=== PATIENT | female | born 1970 ===

== ENCOUNTER 2017-11-15 11:15 | Observation (INO) | payer BC ==
--- NOTE | 2017-11-14 14:16 | Pre-Procedure Note/Attestation ---
Pre-Procedure Note/Attestation Complete Prior to Procedure Planned Procedure: right Procedure Narrative: Rt ankle ORIF Indications for Procedure Pre-Operative Diagnosis: Rt ankle fracture Attestation I attest that I discussed the nature of the procedure; its benefits; risks and complications; and alternatives (and the risks and benefits of such alternatives ), prior to the procedure, with the patient (or the patient's legal hospital sales representative). I attest that, if there was a reasonable possibility of needing a blood transfusion, the patient (or the patient's legal hospital sales representative) was given the [facility] standardized written summary, pursuant to the Boni Rayo Blood Safety Act ([place] Health and Safety Code # 1645, as amended). I attest that I re-evaluated the patient just prior to the surgery and that there has been no change in the patient's H&P, except as documented below: NONE Victoriano Metz MD Nov 14, 2017 14:16
[2017-11-15] VITALS (15 sets, daily range): BP systolic 99–121; BP diastolic 48–73
[~2017-11-15] VITALS: Ht 167.6 cm; Wt 62.6 kg
[~2017-11-15 11:15] MED LIST: ceFAZolin 1gm in D5W 55ml IVPB ONE; celeBREX 200mg Cap **SURGERY PATIENTS ONLY ORAL ONE; oxyCONTIN 20mg tab ORAL ONE
[2017-11-15] MEDS ORDERED: MAXALT10 MG PO (12:30)
[2017-11-15] MEDS ORDERED: NORCO 10-325 T1 EACH ORAL (12:30)
[2017-11-15] MEDS ORDERED: ADDERALL XR 3030 MG ORAL (12:30)
[2017-11-15] MEDS ORDERED: LR 1000ml 1,000 ML IVLG SCH (12:38)
--- NOTE | 2017-11-15 12:38 | Anethesia Preoperative Eval ---
Anesthesia Pre-op PMH/ROS General Date of Evaluation: Nov 15, 2017 Time of Evaluation: 14:36 Anesthesiologist: Norman ASA Score: ASA 2 Mallampati Score Class I : Soft palate, uvula, fauces, pillars visible Class II: Soft palate, uvula, fauces visible Class III: Soft palate, base of uvula visible Class IV: Only hard plate visible Mallampati Classification: Class I Surgeon: Lashay Diagnosis: R Ankle Pain Surgical Procedure: R Ankle Fusion Anesthesia History: none Family History: no anesthesia problems Allergies: Coded Allergies: LATEX (Verified Allergy, Mild, 11/15/17) SKIN RASH SULFA (SULFONAMIDE ANTIBIOTICS) (Verified Allergy, Unknown, 11/15/17) CANNOT REMEMBER REACTION Medications: see eMAR Past Medical History Neurologic/Psychiatric: Reports: other - Migranes PSxH Narrative: Appendectomy, Ectopic , Breast augs Anesthesia Pre-op Phys. Exam Physician Exam Last Vital Signs Date Time Temp Pulse Resp B/P (MAP) Pulse Ox O2 Delivery O2 Flow Rate FiO2 11/15/17 12:35 98.6 51 20 118/52 (74) 100 98.6 11/15/17 12:31 Room Air Constitutional: NAD Neurologic: CN 2-12 intact Cardiovascular: RRR Respiratory: CTA Gastrointestinal: S/NT/ND Airway Exam Mallampati Score: Class I MO: full ROM: full Teeth: intact Anesthesia Pre-op A/P Labs Urine Test Test 11/15/17 11:25 Urine HCG, Qualitative Negative (NEGATIVE) Risk Assessment & Plan Assessment: ASA 2 Plan: GA, Sciatic Block, BIS Status Change Before Surgery: No Pre-Antibiotics Dru Gram Ancef IV Given Within 1 Hr of Incision: Yes Time Given: 14:48 Js Austin MD Nov 15, 2017 12:38
[2017-11-15] MEDS ORDERED: Dexamethasone 4mg/ml vial ONE ×2 (12:40→16:29)
[2017-11-15] MEDS ORDERED: Propofol 200mg/20ml IV ONE (12:40)
[2017-11-15] MEDS ORDERED: Lidocaine 1% MPF 10mg/ml 5ml ONE ×2 (12:40→16:36)
[2017-11-15] MEDS ORDERED: Sodium Chloride 10ml vial INJ ONE (12:40)
[2017-11-15] MEDS ORDERED: Alfentanil 2ml Inj ONE (12:41)
[2017-11-15] MEDS ORDERED: Ropivacaine 5mg/ml Vial 30ml INJ ONE ×3 (12:42→17:26)
[2017-11-15] MEDS ORDERED: LORazepam Inj 2mg/ml 1ml IV PRN (12:45)
[2017-11-15] MEDS ORDERED: Midazolam 2mg/2ml Inj IVP PRN (12:45)
[2017-11-15] MEDS ORDERED: Ketorolac 30mg Inj IV PRN ×2 (12:45)
[2017-11-15] MEDS ORDERED: Atropine Inj 1mg/10ml Syr IV PRN (12:45)
[2017-11-15] MEDS ORDERED: DiphenhydrAMINE 50mg/ml Inj IVP PRN (12:45)
[2017-11-15] MEDS ORDERED: Hydromorphone 0.5mg/0.5ml inj IVP PRN (12:45)
[2017-11-15] MEDS ORDERED: oxyCODONE HCL/Acetaminophen 5/325mg ORAL PRN ×2 (12:45→20:15)
[2017-11-15] MEDS ORDERED: Metoclopramide 10mg/2ml Inj IVP PRN (12:45)
[2017-11-15] MEDS ORDERED: Labetalol 5mg/ml 20ml vial IV PRN (12:45)
[2017-11-15] MEDS ORDERED: Norco 5mg/325mg tab ORAL PRN ×2 (12:45→21:01)
[2017-11-15] MEDS ORDERED: HYDROcodone/Acetamin 7.5/325 tab ORAL PRN (12:45)
[2017-11-15] MEDS ORDERED: oxyCONTIN 20mg tab ORAL ONE (13:05)
[2017-11-15] MEDS ORDERED: LR 1000ml ONE (14:30)
[2017-11-15] MEDS ORDERED: Sterile Water Irrig 1000ml IRRIG ONE (14:30)
[2017-11-15] MEDS ORDERED: NS Irrig 1000ml ONE (14:30)
[2017-11-15] MEDS ORDERED: Bacitracin 50000 Units Vial ONE (14:37)
[2017-11-15] MEDS ORDERED: Bupivacaine 0.5% Inj 30 ml vial INJ ONE (14:37)
[2017-11-15] MEDS ORDERED: NeoSporin Gu Irrig 1ml Amp IRRIG ONE (14:37)
--- NOTE | 2017-11-15 15:25 | Immediate Post-Op Evaluation ---
Immediate Post-Op Evalulation Immediate Post-Op Evalulation Procedure: ORIF R Ankle Date of Evaluation: Nov 15, 2017 Time of Evaluation: 14:59 IV Fluids: 1000 LR Blood Products: 0 Estimated Blood Loss: 10 Urinary Output: 0 Blood Pressure Systolic: 116 Blood Pressure Diastolic: 73 Pulse Rate: 62 Respiratory Rate: 16 O2 Sat by Pulse Oximetry: 100 Temperature (Fahrenheit): 98.2 Pain Score (1-10): 2 Nausea: No Vomiting: No Complications 0 Patient Status: awake, reacts, patent, extubated, none Hydration Status: adequate Dru Gram Ancef IV Given Within 1 Hr of Incision: Yes Time Given: 14:58 Js Austin MD Nov 15, 2017 15:25
--- NOTE | 2017-11-15 15:27 | 48 Hour Post Anesthesia Eval ---
Post Anesthesia Evaluation Procedure: ORIF R Ankle Date of Evaluation: Nov 15, 2017 Time of Evaluation: 16:58 Blood Pressure Systolic: 111 0: 73 Pulse Rate: 69 Respiratory Rate: 16 Temperature (Fahrenheit): 98.4 O2 Sat by Pulse Oximetry: 100 Airway: patent Nausea: No Vomiting: No Pain Intensity: 1 Hydration Status: adequate Cardiopulmonary Status: Stable Mental Status/LOC: patient returned to baseline Follow-up Care/Observations: 0 Post-Anesthesia Complications: 0 Follow-up care needed: ready to discharge Js Austin MD Nov 15, 2017 15:27
[2017-11-15] MEDS ORDERED: ePHEDrine 50mg/ml Inj ONE (15:29)
--- NOTE | 2017-11-15 16:23 | Brief Operative Note ---
Immediate Post Operative Note Operative Note Chief Complaint: rt ankle injury Pre-op Diagnosis: rt ankle fracture Procedure: rt ankle ORIF Post-op Diagnosis: same as pre-op Findings: consistent w/pre-op dx studies Surgeon: md marvin Seam Stayer: burke starr Anesthesiologist: md ame Anesthesia: general Specimen: none Complications: none Condition: stable Fluids: ns Estimated Blood Loss: minimal Drains: none Implant(s) used?: Yes - Maggie Kaiser Nov 15, 2017 16:23
[2017-11-15] MEDS ORDERED: Atropine Inj 1mg/10ml Syr ONE (16:28)
[2017-11-15] MEDS ORDERED: fentaNYL 100 mcg/2 mL IV ONE (16:33)
[2017-11-15] MEDS ORDERED: Ketorolac 30mg Inj ONE (16:38)
[2017-11-15] MEDS ORDERED: Midazolam 2mg/2ml Inj ONE ×2 (16:39→17:21)
[2017-11-15] MEDS ORDERED: Acetaminophen (Non formulary) 100 ML IV ONE (17:00)
[2017-11-15] MEDS: fentaNYL 100 mcg/2 mL IV PRN ×3 (17:00→17:34)
[2017-11-15] MEDS ORDERED: Meperidine 50mg/ml Inj(FOR RIGORS ONLY) ONE (18:21)
[2017-11-15] MEDS ORDERED: Meperidine 50mg/ml Inj(FOR RIGORS ONLY) IVP PRN ×2 (18:45→19:30)
[2017-11-15] MEDS ORDERED: Morphine Sulfate 2mg/ml Inj(IV/IM USE ONLY) IM PRN (20:15)
[2017-11-15] MEDS ORDERED: Morphine Sulfate 4mg/ml Inj (IV USE ONLY) IVP SCH (20:15)
[2017-11-15] MEDS ORDERED: oxyCONTIN 20mg tab ORAL SCH (21:00)
[2017-11-15] MEDS ORDERED: HYDROmorphone 1mg/ml Carpuject SUBQ PRN ×2 (21:01→21:45)
[2017-11-15] MEDS ORDERED: Tylenol #3 tab (300mg/30mg) ORAL PRN (21:01)
[2017-11-15] MEDS ORDERED: D5 1/2NS 1,000 ML IV SCH (21:01)
[2017-11-15] MEDS ORDERED: TransDerm Scop 1mg/72HR Patch TDERMAL SCH (21:45)
[2017-11-15] MEDS ORDERED: oxyCODONE 15mg IR tab ORAL PRN (21:45)
[2017-11-15] MEDS: Dronabinol 2.5mg Cap ORAL SCH (22:06)
[2017-11-15] MEDS: LORazepam 1mg tab ORAL SCH (23:47)
[2017-11-16] VITALS: BP 114/60
--- NOTE | 2017-11-16 00:47 | Operative Note - Dictated ---
DATE OF OPERATION: 11/15/2017 POSTOPERATIVE DIAGNOSIS: Right ankle bimalleolar fracture with displacement. POSTOPERATIVE DIAGNOSIS: Right ankle bimalleolar fracture with displacement. PROCEDURE: Right ankle open reduction and internal fixation of bimalleolar fracture with an 8-hole 1/3 tubular plate on the lateral side and two 40 mm partially threaded cancellous screws on the medial side. SURGEON: Victoriano Metz M.D. NURSE RESEARCHER: Maggie Reynolds PA-C. ANESTHESIOLOGIST: Humberto Sarkar M.D. ANESTHESIA: General LMA anesthesia. ESTIMATED BLOOD LOSS: Less than 20 mL. COMPLICATIONS: None. BRIEF HISTORY: The patient is a pleasant 46-year-old female who sustained a right ankle fracture. The fracture was displaced. After full discussion of the risks and benefits of the surgery and complications including infection, bleeding, neurovascular complication, possible malunion, possible nonunion, possibility of hardware failure, possible need for further surgery, possible posttraumatic arthritis, and other complication that may arise, she opted for surgical treatment as described above. OPERATIVE PROCEDURE: The patient was brought to the operative room table, was placed supine, and all pressure points were well padded. General LMA anesthesia was induced. Right ankle was prepped and draped in the usual sterile fashion. The right ankle was exsanguinated and tourniquet was inflated to 275 mmHg. Standard lateral approach to the ankle was undertaken. The incision was taken through the subcutaneous tissue. The fracture was identified. The fracture was reduced anatomically using reduction clamps. A lag screw was placed in from anterior to posterior. This held the fracture reduced anatomically. Subsequently, an 8-hole 1/3 tubular plate was placed and three fully threaded cancellous screws were placed distally and three bicortical screws were placed proximally. This buttressed the fracture well and fracture was reduced anatomically on the lateral side. At this point, care was given to the medial side. A medial incision was made. The fracture was identified. The fracture was reduced anatomically and two partially threaded 40 mm cancellous screws were placed in the medial malleolus holding the fracture anatomically reduced. This compressed the fracture anatomically. The wounds were thoroughly irrigated using copious amount of fluid. Final x-rays were obtained on AP, lateral, and mortise views showed anatomical reduction of the fracture, excellent placement of hardware, and intact mortise. There was no syndesmotic injury that could be appreciated. The ankle was stressed and again syndesmotic injury was not noted. Wounds were thoroughly irrigated using copious amount of fluid. Subcutaneous tissue was closed using 2-0 Vicryl suture and the skin was closed using 3-0 Monocryl suture. The posterior splint and sugar-tong splint was applied. The patient was taken to the recovery room in stable condition. All lap counts and instrument counts were correct. Victoriano Metz M.D. DR: GENEVA JOB#: [id number] CC:
--- NOTE | 2017-11-16 01:47 | Consultation ---
DATE OF CONSULTATION: 11/15/2017 CONSULTING PHYSICIAN: Guanakito Francis M.D. SURGEON: Victoriano Metz M.D. REASON FOR CONSULTATION: Acute pain consult. HISTORY OF PRESENT ILLNESS: Dear Dr. Victoriano Metz, Thank you kindly for consulting me to evaluate and render an opinion as to how to proceed in the management of the patient's acute postoperative right lower leg pain, status post lower leg open reduction and internal fixation surgery after a fracture. The patient is a 46-year-old woman with a lengthy history of chronic pain syndrome and left lower extremity RSD seven or eight years ago followed by outpatient pain management doctor and underwent multiple sympathetic nerve block injections. Today, the patient underwent right ankle open reduction and internal fixation for planned outpatient surgery. After the procedure despite intraoperative nerve block by the anesthesiologist, the patient still states that her pain was unrelenting and intractable. Dr. Metz, you admitted the patient for uncontrolled pain, consulted me for EMERGENT hospital pain, inpatient pain consultation. I saw the patient at the bedside after discussion with the recovery room nurse as well as with the floor nurse. I reviewed the medical record in detail. I performed detailed bedside history and physical examination to devise the following analgesic plan. PAST MEDICAL HISTORY: 1. Acute postoperative right lower leg pain, status post right lower leg ORIF by Dr. Victoriano Metz in 10/2017. 2. Attention deficit hyperactivity disorder. 3. Migraine headaches. 4. History of RSD of the left lower extremity seven or eight years ago followed with extensive workup and treatment by outpatient pain management physicians. 5. Frequent alcohol usage. PAST SURGICAL HISTORY: Breast augmentation surgery and appendectomy. MEDICATIONS: At home, Adderall 30 mg daily, [place] 10/325 mg, and Maxalt. ALLERGIES: Latex causes itching and sulfa as a child. SOCIAL HISTORY: The patient currently lives with her at home, although they have been having marital difficulties, per the patient. The patient admits to using cannabinoids, sublingual medications for the past couple weeks. The patient admits to drinking a few glasses of wine at least every other night with larger quantities on the weekends. The patient admits to active tobacco usage at least half pack daily. The patient denies crystal methamphetamine usage. The patient denies OxyContin usage. REVIEW OF SYSTEMS: Per attending physician. FAMILY HISTORY: Hypertension, lung cancer, prostate cancer, and hyperlipidemia. PHYSICAL EXAMINATION: VITAL SIGNS: Age 46. Height 5 feet 6 inches. Weight 137 pounds. Body mass index 22. HEENT: Normocephalic and atraumatic. CHEST: Clear to auscultation. BREASTS: Deferred. ABDOMEN: Soft. EXTREMITIES: Left leg shows multiple bruises, where the patient states that she injured this falling from her crutches over the past week. The right lower leg is elevated on pillow covering ice packs. The patient is moving her toes and has significant pain with any movement. NEUROLOGIC: Detailed neurologic exam per Dr. Metz. LABORATORY AND DIAGNOSTIC DATA: Diagnostic testing shows laboratory studies from 11/10/2017 with INR 1.0 and PTT 27. Urinalysis negative. White count 8, hematocrit 39, and platelets 258,000. Sodium 138, potassium 4.7, chloride 99, bicarbonate 24, glucose 90, creatinine 0.8, BUN 10, and calcium 9.1. A 12-lead EKG shows normal sinus rhythm, ventricular rate 67, and no evidence for acute cardiac ischemia. IMPRESSION: 1. Acute postoperative right lower leg pain, status post right lower leg ORIF by Dr. Victoriano Metz in 10/2017. 2. Attention deficit hyperactivity disorder. 3. Migraine headaches. 4. History of RSD of the left lower extremity seven or eight years ago followed with extensive workup and treatment by outpatient pain management physicians. 5. Frequent alcohol usage. TREATMENT AND RECOMMENDATIONS: This patient has a complex history with her left lower extremity RSD and significant pain management workup with injection treatments and use of [place] in the past. The patient does admit to active tobacco usage. She also admits to considerable wine usages along with a recent cannabinoid, self-treatment. I spoke with the hospital pharmacist, Linda along with the floor nurse, Manuel to institute the following analgesic plan. I will dose the patient with Marinol 2.5 mg immediately and follows every eight hours, this should help with her attention deficit hyperactivity disorder along with complaints of postoperative nausea, hopefully help reduce her opioid requirements. She received multiple bolus doses of Demerol and fentanyl in the recovery room without adequate pain control. She has tolerated Percocet in the past. I have ordered a dose of oxycodone 15 mg q.3 hours p.r.n. for moderate breakthrough pain. The patient states that she has been rather immune to [place], which she took considerably up to eight pills a day during her RSD flares, which still recurrent from [id number] to her left lower extremity. I have added a breakthrough dose of Dilaudid 1 mg subcutaneously every three hours p.r.n. for severe breakthrough pain. With considerable alcohol usage and attention deficit hyperactivity disorder, I have added an anxiolytic, Ativan 1 mg q.12 hours to help moderate her anxiety and pain control. I will also add a nicotine patch 21 mg starting tonight to help with nicotine withdrawal agitation, which may exacerbate her pain complaints. The patient is concerned with nausea symptoms, I have added a dose of 1 mg scopolamine patch. As the patient denies any glaucoma symptoms, which would prohibit the usage of scopolamine. I also added dose of Phenergan intramuscularly 12.5 mg q.8 hours along with Zofran 4 mg intravenously q.4 hours for as needed parental antiemetic agents. I will empirically place the patient on Protonix 40 mg nightly for GI ulcer prophylaxis. I have ordered a p.r.n. dose of Mylanta 30 mL q.6 hours in case of any GERD symptom exacerbation. I have ordered Benadryl 25 mg orally every six hours in case of any itching complaints. The patient does have a history of headaches, I have ordered Fioricet one tablet orally every eight hours p.r.n. for any headache symptoms. Hopefully, the patient will not need to use her on Maxalt in case of migraine flare. I did instruct the nurseManuel to wait at least 60 minutes between doses of any sedating medications to avoid any oversedation with polypharmacy. I have ordered incentive spirometer to encourage good pulmonary toilet. With her active tobacco usage, I did newspaper delivery counselor the patient to stop smoking. The patient does admit that with her marital difficulties, she restarted smoking six months ago and seems to be under too much anxiety and stress to stop smoking at this time. I will defer DVT prophylaxis to the surgeon, Dr. Victoriano Metz. Guanakito Francis M.D. DR: CIRO JOB#: [id number] CC:
[2017-11-16 04:00] VITALS: BP 103/56
[2017-11-16] MEDS: Dronabinol 2.5mg Cap ORAL SCH ×2 (05:16→13:03)
--- NOTE | 2017-11-16 07:18 | Orthopedic Progress Note ---
Orthopedic - Progress Note Subjective Symptoms: improved - much better pain control today Objective Vital Signs Last 24 Hour Vital Signs Date Time Temp Pulse Resp B/P (MAP) Pulse Ox O2 Delivery O2 Flow Rate FiO2 11/16/17 04:00 98.1 63 18 103/56 (72) 98 98.1 11/16/17 00:00 97.7 49 18 114/60 (78) 100 97.7 11/15/17 21:00 Room Air 11/15/17 20:30 97.5 64 18 110/53 99 Room Air 97.5 11/15/17 20:00 64 15 120/50 99 Room Air 11/15/17 19:52 97.2 11/15/17 19:30 64 16 115/55 98 Room Air 11/15/17 19:15 97.7 11/15/17 18:45 64 20 99/53 95 Room Air 11/15/17 18:45 97.5 11/15/17 18:45 71 18 118/53 97 Room Air 11/15/17 18:30 69 14 110/52 96 Room Air 11/15/17 18:15 63 15 109/48 99 Room Air 11/15/17 18:00 66 17 116/56 98 Room Air 11/15/17 17:45 65 14 112/58 100 Simple Mask 6 11/15/17 17:34 98.0 11/15/17 17:30 74 17 113/55 100 Simple Mask 6 11/15/17 17:15 61 15 113/58 100 Simple Mask 6 11/15/17 17:15 97.6 11/15/17 17:00 64 16 112/50 100 Simple Mask 6 11/15/17 17:00 97.6 11/15/17 16:52 209.1 69 16 100 11/15/17 16:50 65 17 111/60 100 Simple Mask 6 11/15/17 16:49 208.8 62 16 100 11/15/17 16:48 98.2 62 16 116/73 100 Simple Mask 6 98.2 11/15/17 12:35 98.6 51 20 118/52 (74) 100 98.6 11/15/17 12:31 Room Air I&O Intake and Output 11/15/17 11/16/17 19:00 07:00 Intake Total 500 ml Output Total 50 ml Balance 450 ml Intake Oral 150 ml IV Total 350 ml Output Estimated Blood Loss 50 ml Wound: clean, dry, intact Drains: none Neuro Status: other - decrease sensation and minimal movement of toes, likely from femoral block Vascular Status: normal Assessment Post-op Diagnosis POD 1 Procedure Performed rt ankle ORIF Plan Plan: pain management - has oral pain meds from our office at home. would rec pain mgt see pt before d/c to provide any additional Rxs that may be beneficial , discharge to home Maggie Reynolds Nov 16, 2017 07:18
[2017-11-16 08:00] VITALS: BP 113/66
[2017-11-16] MEDS: LORazepam 1mg tab ORAL SCH (11:00)
[2017-11-16 11:27] VITALS: BP 122/62
[2017-11-16] MEDS ORDERED: LORazepam 1mg tab ORAL ONE (14:56)
[2017-11-16] MEDS ORDERED: oxyCODONE 15mg IR tab ORAL SCH (16:00)
--- NOTE | 2017-11-16 22:16 | Progress Note ---
DATE: 11/16/2017 ACUTE PAIN MANAGEMENT PHYSICIAN PROGRESS NOTE OBJECTIVE: VITAL SIGNS: Afebrile, pulse 71, respirations 20, blood pressure 122/62, and oxygen saturation 99% on room air. LABORATORY AND DIAGNOSTIC DATA: No interval laboratory studies. Medication administration record reviewed. Medications include Protonix, scopolamine patch, q.12 h. Ativan, q.8 h. Marinol, and nicotine patch. The p.r.n. medications include Fioricet, Benadryl, Phenergan, Zofran, oxycodone, Dilaudid, Mylanta, Cepacol, and Catapres. I saw the patient at the bedside with the nurse RN, Char. The surgeon, Dr. Metz's rehabilitation assistant, Maggie. I saw the patient earlier and cleared the patient for discharge from a surgical standpoint. Postoperative x-rays were obtained in the operating room showing anatomical reduction of the fracture, excellent placement of hardware, and intact mortise. Here in the hospital, the patient has an alternating breakthrough doses of p.r.n. Dilaudid with oxycodone. I did leave a prescription for 40 tablets of Percocet 10/325 mg for outpatient usage. The patient does have sublingual cannabinoids at home to use. She has been tolerating the scheduled Marinol here in the hospital without any oversedation. With the patient's significant alcohol usage, I would continue her scheduled Ativan here in the hospital and I did pediatric genetic counselor the patient to avoid alcohol usage while on these potent opioid narcotics. It is unclear how compliant the patient will be, which why only provided 40 tablets of Percocet for outpatient usage. The patient to follow with Dr. Metz shortly for evaluation of her narcotic usage. The patient will be discharged to the care of her and her daughter, as the patient's friend, Janiya will be picking up the patient later this afternoon for hospital discharge. The patient does have crutches and the splint appears clean and dry, after examination by Dr. Metz's rehabilitation assistant, Maggie Reynolds, who is a physician rehabilitation assistant. The patient does have significant social aspects with recovery and she is having marital problems, per her report. In the outpatient setting, she may benefit from usage of antidepressants. Guanakito Francis M.D. DR: BIANCA JOB#: [id number] CC:
[2017-11-16] MEDS ORDERED: LORazepam 1mg tab ORAL SCH (23:00)
--- NOTE | 2017-11-18 11:56 | Discharge Summary ---
Discharge Summary Hospital Course Date of Admission Nov 15, 2017 at 21:00 Date of Discharge Nov 16, 2017 at 16:30 Admitting Diagnosis Right ankle bimalleolar fracture with displacement. Reason for Hospitalization: elective surgery HPI Magalys Deutsch is a 46 year old female who was admitted on Nov 15, 2017 at 21:00 for Right ankle bimalleolar fracture with displacement. Consultations dr Francis pain specialist Procedures s/p 11/15/[address] Metz Right ankle open reduction and internal fixation of bimalleolar fracture with an 8-hole 1/3 tubular plate on the lateral side and two 40 mm partially threaded cancellous screws on the medial side. Hospital Course s/p surgery course of recovery uneventful initially IVF s/p perioperative antibiotic pain management addressed pain specialist consulted to provide adequate pain management control and avoid oversedation pain was controlled neurovascular status frequently reassessed. remained stable dressing with splint C/D/I crutches provided NWB status RLE instructed on use of crutches tolerated diet, voided IVF dc GI prophayxlsi provided started on Nicotine patch, counseled on smoking cessation dc instructions provided counseled to decrease use of alcohol , and dont use alcohol with narcotics stable for dc home with outpt fup with surgeon as advised FINAL DIAGNOSES Right ankle bimalleolar fracture with displacement s/p R ankle ORIF Attention deficit hyperactivity disorder. Migraine headaches. History of RSD of the left lower extremity Frequent alcohol usage. Discharge Medications Continued Medications: Amphet Asp/Amphet/D-Amphet (Adderall Xr 30 Mg Capsule) 30 Mg Cap.er.24h 30 MG ORAL DAILY, CAP (This prescription has been renewed) Hydrocodone Bit/Acetaminophen 10-325* ([place] 10-325*) 1 Each Tablet 1 TAB ORAL Q4H PRN for For Pain, TAB 0 Refills (This prescription has been renewed) PRN PAIN Rizatriptan Benzoate (Maxalt) 10 Mg Tablet 10 MG PO , TAB (This prescription has been renewed) Discharge Condition Upon Discharge: stable Discharge Disposition Patient was discharged to Home () Discharge Instructions Discharge Instructions Special Instructions I have been assigned to complete a D/C Summary on this account. I was not involved in the patient management Maria Antonia Ruano NP Nov 18, 2017 11:56
== END 2017-11-16 16:30 | disposition home or self-care (01) ==
LOC: SUR 11:15 → 3E 21:00
DX: S82.841A Displaced bimalleolar fracture of right lower leg, initial encounter for closed fracture (principal); F17.200 Nicotine dependence, unspecified, uncomplicated; F90.9 Attention-deficit hyperactivity disorder, unspecified type; G43.909 Migraine, unspecified, not intractable, without status migrainosus; Z88.2 Allergy status to sulfonamides; Z91.040 Latex allergy status
CPT/HCPCS: 27814; 73610; 76001; 81025; C1713; G0378; J0171; J0690; J1100; J1170; J1885; J2175; J2250; J2405; J2704; J2795; J3010; J3490; J7120; 94003; 94150